=== PATIENT | female | born 1965 | race Caucasian/White ===

== ENCOUNTER 2022-08-23 13:54 | Emergency (ER) | payer MEDICAID, SELFPAY ==
[2022-08-23 14:21] VITALS: BP 210/148; PULSE 108; RESP 20; TEMP 36.8; O2SAT 92; BMI 42.6
[2022-08-23 14:34] VITALS: BP 190/99; PULSE 109; RESP 18; O2SAT 94
--- NOTE | 2022-08-23 14:35 | CRLHL7_ITS ---
For Patients: As a result of the Cures Act, medical imaging exams and procedure reports are released immediately into your electronic medical record. You may view this report before your referring provider. If you have questions, please contact your health care provider. INDICATION: Fall. TECHNIQUE: Three-view left knee. IMPRESSION: No signs of acute fracture. Mild joint space narrowing patellofemoral and medial compartment. Bony alignments are anatomic. Dictated by Luther Oneal MD @ 08/23/2022 3:12:34 PM (Electronically Signed)
--- NOTE | 2022-08-23 14:36 | ED_ITS ---
HPI - Extremity Injury (Lower) General Chief Complaint: Extremity Pain/Injury, Lower Stated Complaint: Fell, Injured L knee Time Seen by Provider: 08/23/22 14:14 History of Present Illness HPI Narrative: This 57-year-old female comes in with an injury to her left knee. About 6 hours prior to arrival she slipped on ice and fell down onto her left knee. She was able to get up and ambulate with the assistance of a cane. She does not report any other injury. She did not hit her head or have loss of consciousness. She states that she fell directly onto her knee and there was not any additional twisting or abnormal position of her legs when she fell. Related Data Previous Rx's Medication Instructions Recorded ketorolac 10 mg tablet 10 mg PO Q8H 5 days #15 tabs 08/23/22 Review of Systems Status of ROS: Reports: 10 or more systems reviewed and unremarkable except as noted in History and below Narrative: Constitutional: No fevers, no weight gain or loss. Eyes: No discharge. No vision changes. HENT: No congestion, no sore throat, no ear pain. Cardiovascular: No chest pain, no palpitations. Respiratory: No shortness of breath, no wheezes, no cough. Gastrointestinal: No abdominal pain, no vomiting, no diarrhea. Genitourinary: No dysuria, no hematuria. Musculoskeletal: Left anterior knee pain. Skin: No rashes, no pruritis. Neurological: No dizziness, weakness, sensory change, speech change. Endo/Heme/Allergies: No bruising or bleeding. No polydipsia. Pysch: no suicidality, no anxiety, no insomnia. All other systems reviewed and are negative. PFSH PFSH Social History Smoking Status: Former smoker Do you use any of these nicotine containing products: None Second hand tobacco smoke exposure: No How often do you have a drink containing alcohol: never AUDIT-C Alcohol total score: 0 Non-prescribed substance use: denies use Exam Narrative: Exam Narrative: Constitutional: Well-developed, well-nourished, no acute distress. HEENT: Normocephalic, atraumatic. Neck: Normal range of motion. Nontender. Supple. Heart: Regular. No murmurs. Normal rate. Intact distal pulses. Lungs: Clear to auscultation. No chest discomfort. No wheezes, rhonchi, or rales. Abdomen: Normal bowel sounds. Nontender. No rebound tenderness. Genitalia: Deferred. Back: No midline tenderness. Normal range of motion. Extremities: Diffuse pain in the left knee. No sign of obvious deformity or joint effusion. No instability. Skin: Intact. No rash. Warm. No erythema or pallor. Neurologic: No altered sensation. No weakness. Alert and oriented. Psychiatric: No suicidality. No anxiety or depression. No insomnia. Nursing notes and vitals signs are reviewed. Const: Vital Signs, click to edit/add: Vital Signs - 24 hr 08/23/22 14:21 08/23/22 14:34 Temperature 98.2 F Pulse Rate [Pulse Oximeter] 108 H 109 H Respiratory Rate 20 18 Blood Pressure [Le ft Forearm] 210/148 H 190/99 H Pulse Oximetry 92 94 Oxygen Delivery Me thod Room Air Room Air Course Vital Signs Vital signs: Initial Vital Signs Temperature 98.2 F 08/23/22 14:21 Temperature Source Temporal Artery Scan 08/23/22 14:21 Pulse Rate 108 H 08/23/22 14:21 Pulse Rhythm 08/23/22 14:21 Respiratory Rate 20 08/23/22 14:21 Blood Pressure 210/148 H 08/23/22 14:21 Blood Pressure Mean 168 08/23/22 14:21 Blood Pressure Position Sitting 08/23/22 14:21 Pulse Oximetry 92 08/23/22 14:21 Oxygen Delivery Method 08/23/22 14:21 Vital Signs Temperature 98.2 F 08/23/22 14:21 Pulse Rate 108 H 08/23/22 14:21 Respiratory Rate 20 08/23/22 14:21 Blood Pressure 210/148 H 08/23/22 14:21 Pulse Oximetry 92 08/23/22 14:21 Oxygen Delivery Method 08/23/22 14:21 Temperature 98.2 F 08/23/22 14:21 Pulse Rate 109 H 08/23/22 14:34 Respiratory Rate 18 08/23/22 14:34 Blood Pressure 190/99 H 08/23/22 14:34 Pulse Oximetry 94 08/23/22 14:34 Oxygen Delivery Method 08/23/22 14:34 MDM - Extremity Injury (Lower) MDM Narrative Medical decision making narrative: This patient comes in for evaluation of an injury to her left knee from a fall that occurred a few hours ago. X-ray imaging by my review and according to radiology report shows no sign of acute bony injury. The patient is able to ambulate with the assistance of a cane. She is okay to be discharged home and is encouraged to increase activity as tolerated. A prescription for Toradol is provided. Imaging Data XR L Knee: Radiologist's impression: No signs of acute fracture. Mild joint space narrowing patellofemoral and medial compartment. Bony alignments are anatomic. Discharge Plan Discharge Clinical Impression: Contusion of knee, left Patient Disposition: Home, Self-Care Condition: Unchanged Additional Instructions: Take medication as needed and indicated. Increase activity as tolerated. Follow up with MD or return if worsening. Prescriptions: New ketorolac 10 mg tablet 10 mg PO Q8H 5 Days Qty: 15 0RF Follow Up/Referrals: Provider,Not a Local [Primary Care Provider] - Stand Alone Forms: [employer] Info Instructions
== END 2022-08-23 15:37 | disposition home or self-care (01) ==
PROVIDERS: Emergency Provider Emergency Medicine Emergency Medical Services
DX: S80.02XA Contusion of left knee, initial encounter (principal); W00.9XXA Unspecified fall due to ice and snow, initial encounter
CPT/HCPCS: 73562; 99283; 99284